=== PATIENT | male | born 1995 | race Caucasian/White ===

== ENCOUNTER 2020-08-23 12:25 | Emergency (ER) | payer MEDICAID, SELFPAY ==
[2020-08-23 13:01] VITALS: BP 138/80; BP 142/70; PULSE 79; PULSE 85; RESP 18; TEMP 36.7; O2SAT 100; O2SAT 99; BMI 22.8
--- NOTE | 2020-08-23 13:06 | PC.NURSE ---
Pt cooperative wtih changeover. Pacing in room, declined food, bible has been checked by security and is allowed to remain with patient.
--- NOTE | 2020-08-23 13:38 | ED_ITS ---
HPI - Psych General Chief Complaint: Psychiatric Symptoms Stated Complaint: crisis Time Seen by Provider: 08/23/20 13:38 Source: patient and EMS Mode of arrival: EMS Limitations: altered mental status History of Present Illness HPI Narrative: 25 y/o male with unknown medical or psychiatric history presents to the ER via EMS with strange behaviors noted by his coworkers. He was found by EMS with a Bible shouting about how the son of God has arrives and that he a vessel of God. He lives at home with his grandmother who is currently in [place]. He denies any history of psychiatric disorders or being on any medications. He denies current drug use and reported to staff I've been clean. He would not elaborate or cooperative with interview questions, stating he was busy with the Bible and was worried about all the sinners. He refused to answer further questions once asked about medications and pharmacy he goes to. MD complaint: altered mental status and hallucinations Onset (ago): unknown Duration: constant Relieving factors: none Exacerbating factors: none Associated psychiatric symptoms: racing thoughts, auditory hallucinations, visual hallucinations and delusions Associated symptoms: denies other symptoms Treatments prior to arrival: none Related Data Allergies Allergy/AdvReac Type Severity Reaction Status Date / Time Penicillins [PENICILLINS] Allergy Mild RASH Verified 08/23/20 13:01 penicillin V Allergy Unknown Rash Verified 08/23/20 13:01 Review of Systems Review of Systems: Yes Unobtainable due to mental status PMFSH Past Medical History Attestation statement: The following information was validated with the patient. Medical History (Updated 08/23/20 @ 20:04 by ABISAI Patel) Patient denies medical problems Social History Social History Alcohol intake: former Smoked in Last 30 Days: No Use of substances other than those prescribed or required for medical reasons: Yes Advance Directives: No Advance Directives Information Provided: Yes Physical Exam Vital Signs: Vital Signs: Last Vital Signs Temp 98.0 F 08/23/20 13:01 Pulse 79 08/23/20 13:01 Resp 18 08/23/20 13:01 BP 142/70 H 08/23/20 13:01 Pulse Ox 100 08/23/20 13:01 Body Mass Index 22.8 Appearance: Alert. Oriented X2. Yelling out Bible phrases Eyes: Pupils equal, round and reactive to light. ENT: Pharynx normal. Neck: Normal inspection. Neck supple. CVS: Normal heart rate and rhythm. Pulses normal. Respiratory: No respiratory distress. Breath sounds normal. Abdomen: Soft and nontender. +BS x4 Skin: Skin warm and dry. Normal skin color. Normal skin turgor. No rashes. Extremities: No lower extremity edema. Neuro: Oriented X 3. Ambulating in the room holding a Bible, rambling about sins, makes brief eye contact, racing thoughts, auditory hallucinations, paranoia, no SI Course Course Course Narrative: 25 y/o male presenting with new onset of psychotic behavior with delusions, paranoia and auditory hallucinations. Denies drug use or being on any psychiatric medications. Will try to obtain further history from family and coworkers. Basic labs and utox ordered. Zydis ordered. Reevaluation(s) Reevaluation #1: Utox negative. Labs showing mild hypercalcemia and elevated LFTs (tbili 2.7, d bili 0.7, and alp 129). No RUQ or abdominal pain. Will plan to trend in the morning. If continues to be elevated will consider RUQ U/S for further evaluation. Reevaluation #2: Seen by CARE team - section 12 completed. Patient is a section 12 inpatient bed search. Physician observation started at 8pm. Patient placed in physician observation because patient is awaiting inpatient psych admission. At the time observation was started patient's vital signs were stable. Patient is alert and oriented. Neuro exam is non-focal. CV: RRR and lungs are clear. Will continue to monitor. [facility] - Psych Lab Data Result diagrams: 08/23/20 19:05 08/23/20 19:05 Labs: Lab Results 08/23/20 08/23/20 08/23/20 Range/Units 18:48 18:48 19:05 WBC 8.5 (4.8-10.8) X10*3/uL RBC 5.18 (4.60-5.80) X10*6/uL Hgb 15.4 (14.0-18.0) g/dl Hct 44.4 (42-52) % MCV 85.7 (80-98) fL MCH 29.7 (27.0-33.0) pg MCHC 34.7 (31.0-36.0) g/dl RDW 12.1 (11.0-16.0) % Plt Count 369 (160-400) X10*3/uL MPV 9.7 (9.4-12.4) fL Immature Gran % (Auto) 0.1 (0.0-0.4) % Neut % (Auto) 60.2 (45-73) % Lymph % (Auto) 30.6 (20-40) % Gaines % (Auto) 8.5 (2-11) % Eos % (Auto) 0.2 (0-4) % Baso % (Auto) 0.4 (0-2) % Lymph # (Auto) 2.6 (1.2-4.9) X10*3/uL Gaines # (Auto) 0.7 (0.1-1.2) X10*3/uL Eos # (Auto) 0.0 (0.0-0.4) X10*3/uL Baso # (Auto) 0.0 (0.0-0.2) X10*3/uL Abs Immat Gran (auto) 0.01 (0.00-0.03) X10*3/uL Absolute Neuts (auto) 5.1 (2.0-8.3) X10*3/uL Absolute Nucleated RBC 0.000 (0.0-0.012) X10*3/uL Nucleated RBC % (auto) 0.0 (0.0-0.2) /100WBC Sodium (135-145) mmol/L Potassium (3.3-5.1) mmol/L Chloride (96-108) mmol/L Carbon Dioxide (22-29) mmol/L Anion Gap (12-20) BUN (9-16) mg/dL Creatinine (0.5-1.4) mg/dL Estim Creat Clear Calc Estimated GFR Random Glucose (60-115) mg/dL Calcium (8.4-10.2) mg/dL Total Bilirubin (0.0-1.0) mg/dL Direct Bilirubin (0.0-0.5) mg/dL AST (5-37) U/L ALT (0-40) U/L Alkaline Phosphatase (39-117) U/L Total Protein (6.5-8.0) g/dL Albumin (3.5-5.0) g/dL Urine Color DARK YELLOW Urine Appearance CLEAR Urine pH 6.0 (5.0-8.0) Ur Specific [place] 1.025 (1.005-1.025) Urine Protein 1+ H (NEG-TRACE) MG/DL Urine Glucose (UA) NEG (NEG) MG/DL Urine Ketones 40 (NEG) MG/DL Urine Blood NEG (NEG) Urine Nitrite NEG (NEG) Ur Leukocyte Esterase NEG (NEG) Urine RBC 0-2 (0) /HPF Urine WBC 0-2 (0-4) /HPF Ur Squamous Epith Cells NONE /LPF Urine Bacteria TRACE /LPF Urine Mucus 2+ /LPF Urine Opiates Screen Not Detected (Not Detect) Ur Barbiturates Screen Not Detected (Not Detect) Ur Phencyclidine Scrn Not Detected (Not Detect) Ur Amphetamines Screen Not Detected (Not Detect) U Benzodiazepines Scrn Not Detected (Not Detect) Urine Cocaine Screen Not Detected (Not Detect) U Marijuana (THC) Screen Not Detected (Not Detect) Ethyl Alcohol mg/dL 08/23/20 08/23/20 Range/Units 19:05 19:05 WBC (4.8-10.8) X10*3/uL RBC (4.60-5.80) X10*6/uL Hgb (14.0-18.0) g/dl Hct (42-52) % MCV (80-98) fL MCH (27.0-33.0) pg MCHC (31.0-36.0) g/dl RDW (11.0-16.0) % Plt Count (160-400) X10*3/uL MPV (9.4-12.4) fL Immature Gran % (Auto) (0.0-0.4) % Neut % (Auto) (45-73) % Lymph % (Auto) (20-40) % Gaines % (Auto) (2-11) % Eos % (Auto) (0-4) % Baso % (Auto) (0-2) % Lymph # (Auto) (1.2-4.9) X10*3/uL Gaines # (Auto) (0.1-1.2) X10*3/uL Eos # (Auto) (0.0-0.4) X10*3/uL Baso # (Auto) (0.0-0.2) X10*3/uL Abs Immat Gran (auto) (0.00-0.03) X10*3/uL Absolute Neuts (auto) (2.0-8.3) X10*3/uL Absolute Nucleated RBC (0.0-0.012) X10*3/uL Nucleated RBC % (auto) (0.0-0.2) /100WBC Sodium 142 (135-145) mmol/L Potassium 3.6 (3.3-5.1) mmol/L Chloride 104 (96-108) mmol/L Carbon Dioxide 24 (22-29) mmol/L Anion Gap 18 (12-20) BUN 12 (9-16) mg/dL Creatinine 1.19 (0.5-1.4) mg/dL Estim Creat Clear Calc 92.1 Estimated GFR > 60 Random Glucose 100 (60-115) mg/dL Calcium 10.8 H (8.4-10.2) mg/dL Total Bilirubin 2.7 H (0.0-1.0) mg/dL Direct Bilirubin 0.7 H (0.0-0.5) mg/dL AST 24 (5-37) U/L ALT 26 (0-40) U/L Alkaline Phosphatase 129 H (39-117) U/L Total Protein 8.7 H (6.5-8.0) g/dL Albumin 5.3 H (3.5-5.0) g/dL Urine Color Urine Appearance Urine pH (5.0-8.0) Ur Specific [place] (1.005-1.025) Urine Protein (NEG-TRACE) MG/DL Urine Glucose (UA) (NEG) MG/DL Urine Ketones (NEG) MG/DL Urine Blood (NEG) Urine Nitrite (NEG) Ur Leukocyte Esterase (NEG) Urine RBC (0) /HPF Urine WBC (0-4) /HPF Ur Squamous Epith Cells /LPF Urine Bacteria /LPF Urine Mucus /LPF Urine Opiates Screen (Not Detect) Ur Barbiturates Screen (Not Detect) Ur Phencyclidine Scrn (Not Detect) Ur Amphetamines Screen (Not Detect) U Benzodiazepines Scrn (Not Detect) Urine Cocaine Screen (Not Detect) U Marijuana (THC) Screen (Not Detect) Ethyl Alcohol < 10 mg/dL Discharge Plan Discharge Clinical Impression: Acute psychosis
--- NOTE | 2020-08-23 14:33 | PC.NURSE ---
patient has continued to chant with bible open on desk and nearly continuously pacing in his room, patient has prayed with hands held open to the denilson. presented to patient that med is available for anxiety?fearful thoughts. patient had poor eye contact and continued to sing while this automobile service writer spoke
--- NOTE | 2020-08-23 18:35 | MHC.CARE ---
[facility] came [place] [facility] [place] after realizing that CARE team took over the case. N reports that pt reported that god sent him to change the world and went to work today. At work pt reports that he had to tell his co-workers all about this revelation. He tells N that he lives with his grandmother and was raised by her. He states that we can can call his mother whom he has been speaking with more frequently. The mother's name is Jolie Cortez [phone] and she is SSO. [facility] reports that pt's muslim preoccupation appears new. Pt is very calm and cooperative. They report their concern is that he would be going home alone, due to grandmother being in [place] but otherwise feels that his judgment, and insight are fair adding that he is able to communicate what had happened today.
[2020-08-23 19:00] LABS: Glucose Urine UA NEG (NEG); Leukocyte Esterase Urine NEG (NEG); Nitrite Urine NEG (NEG); Specific Gravity - Urine 1.025 (1.005-1.025); Urine Blood NEG (NEG); Urine Ketones 40 MG/DL (NEG); Urine Protein 1+ MG/DL (NEG-TRACE)
[2020-08-23 19:12] LABS: Appearance Urine CLEAR; Color Urine DARK YELLOW
[2020-08-23 19:14] LABS: MANUAL DIFF FLAG NO
[2020-08-23 19:15] LABS: Basophils Percent Auto 0.4 % (0-2); Eosinophils Percent Auto 0.2 % (0-4); Hematocrit 44.4 % (42-52); Hemoglobin 15.4 g/dl (14.0-18.0); Imm Gran Abs Auto 0.01 X10*3/uL (0.00-0.03); Imm Gran Pct Auto 0.1 % (0.0-0.4); Lymphocytes Absolute Auto 2.6 X10*3/uL (1.2-4.9); Lymphocytes Percent Auto 30.6 % (20-40); Mean Corpuscular HGB Conc 34.7 g/dl (31.0-36.0); Mean Corpuscular Hemoglobin 29.7 pg (27.0-33.0); Mean Corpuscular Volume 85.7 fL (80-98); Mean Platelet Volume 9.7 fL (9.4-12.4); Monocytes Absolute Auto 0.7 X10*3/uL (0.1-1.2); Monocytes Percent Auto 8.5 % (2-11); Neutrophils Absolute Auto 5.1 X10*3/uL (2.0-8.3); Neutrophils Percent Auto 60.2 % (45-73); Platelet Count 369 X10*3/uL (160-400); Red Blood Count 5.18 X10*6/uL (4.60-5.80); Red Cell Distribution Width 12.1 % (11.0-16.0); White Blood Count 8.5 X10*3/uL (4.8-10.8)
[2020-08-23 19:16] LABS: Bacteria Urine TRACE /LPF; Mucus Urine 2+ /LPF; RBC Urine 0-2 /HPF (0); WBC Urine 0-2 /HPF (0-4)
[2020-08-23 19:30] LABS: Amphetamine Screen Urine Not Detected (Not Detect); Barbiturates, Urine Not Detected (Not Detect); Benzodiazepines Screen Urine Not Detected (Not Detect); Cannabinoid Screen Urine Not Detected (Not Detect); Cocaine Screen Urine Not Detected (Not Detect); Opiate Screen Urine Not Detected (Not Detect); Phencyclidine Screen Urine Not Detected (Not Detect)
[2020-08-23 19:38] LABS: Ethanol < 10 mg/dL
[2020-08-23 19:46] LABS: Alanine Aminotransferase 26 U/L (0-40); Albumin Level 5.3 g/dL (3.5-5.0); Alkaline Phosphatase 129 U/L (39-117); Anion Gap 18 (12-20); Aspartate Amino Transferase 24 U/L (5-37); Bilirubin Direct 0.7 mg/dL (0.0-0.5); Bilirubin Total 2.7 mg/dL (0.0-1.0); Blood Urea Nitrogen 12 mg/dL (9-16); Calcium 10.8 mg/dL (8.4-10.2); Carbon Dioxide 24 mmol/L (22-29); Chloride 104 mmol/L (96-108); Creatinine Clr Calc Pharmacy 92.1; Estimated Glomerular Filt Rate > 60; Glucose Random 100 mg/dL (60-115); Potassium 3.6 mmol/L (3.3-5.1); Sodium 142 mmol/L (135-145); Total Protein 8.7 g/dL (6.5-8.0)
[2020-08-23 20:15] VITALS: BP 124/76; PULSE 77; TEMP 36.3; O2SAT 99
--- NOTE | 2020-08-23 21:08 | PC.NURSE ---
Patient refused olanzapine x 3, currently lying in bed resting, VSS, will continue to monitor.
--- NOTE | 2020-08-24 06:19 | PC.NURSE ---
Patient slept through the night, no psychotic behavior overnight, compliant with Covid swab, VSS, no distress observed/reported, patient's disposition section 12 inpatient bed search, will continue to monitor.
[2020-08-24 06:20] VITALS: BP 117/59; PULSE 67; RESP 16; TEMP 36.4; O2SAT 100
[2020-08-24 06:45] LABS: COVID-19 Test Negative (Negative)
--- NOTE | 2020-08-24 07:41 | PC.NURSE ---
pt had a one time order for Zyprexa for agitation. Overnight RN was unable to administer medication and charted against it, pt was willing to take med this morning and med was administered.
[2020-08-24] MEDS: OLANZapine ODT 10 MG TAB.RAPDIS 5 MG TRANSLINGU ×2 (08:29→20:11)
[2020-08-24 08:47] LABS: Alanine Aminotransferase 27 U/L (0-40); Albumin Level 4.9 g/dL (3.5-5.0); Alkaline Phosphatase 120 U/L (39-117); Aspartate Amino Transferase 25 U/L (5-37); Bilirubin Direct 0.8 mg/dL (0.0-0.5); Bilirubin Total 3.1 mg/dL (0.0-1.0); Total Protein 8.1 g/dL (6.5-8.0)
--- NOTE | 2020-08-24 13:24 | MHC.CARE ---
Pt gave t/w verbal permission to provide Pts mother with his car and house keys. CARE Team provided Pts mother with keys.
--- NOTE | 2020-08-24 13:33 | MHC.CARE ---
CARE Team spoke with Pts mother at [facility]. Pts mother reported Pt carries a diagnosis of Austim. She reported this a new presentation for Pt and Pt isn't out of it but is saying god sent him here for a spiritual mission. She reports she is comfortable taking him home in this state however Pt is declining to want to leave the hospital and god wants him here . Pt is aware the plan of care is for Pt to be psychiatrically hospitalized and Pt is agreeable. Pts mother would like to be notified if Pt is to be discharged. Pt agreeable to this.
[2020-08-24 19:58] VITALS: BP 100/70; PULSE 80; RESP 18; TEMP 36.6; O2SAT 99
--- NOTE | 2020-08-24 20:17 | MHC.CARE ---
Pt approached this assembly instructions writer and stated that he's ready to go home now. This assembly instructions writer reviewed pt's chart and spoke with ED provider re: pt's initial presentation, collateral with pt's mother, and pt being considered as safe for discharge due to their being no imminent safety concerns noted or documented in medical record. ED provider is in agreement with plan for pt to discharge home with his mother. This assembly instructions writer spoke with pt's mother, Jolie, who reported that she is more than happy to come to the hospital to pick the pt up. Inpatient psychiatric bedsearch disconinuted, pt will discharge home this evening.
--- NOTE | 2020-08-24 20:23 | PC.NURSE ---
Patient calm and cooperative, mood pleasant, compliant with olanzapine PRN order, alert and oriented x 4, coherent thought process, will continue to monitor.
== END 2020-08-24 21:14 | disposition home or self-care (01) ==
PROVIDERS: Physician Assistant; Student in an Organized Health Care Education/Training Program; Emergency Provider Emergency Medicine Emergency Medical Services
DX: F23 Brief psychotic disorder (principal); E83.52 Hypercalcemia; R79.89 Other specified abnormal findings of blood chemistry; Z20.822 Contact with and (suspected) exposure to COVID-19
CPT/HCPCS: 36415; 80048; 80076; 80307; 81001; 81003; 82077; 85025; 87635; 99284; 99285

== ENCOUNTER 2020-10-28 15:14 | Emergency (ER) | payer MEDICAID, SELFPAY ==
[2020-10-28 15:32] VITALS: BP 119/72; PULSE 86; RESP 16; TEMP 37.2; O2SAT 97; BMI 26.6
[2020-10-28] MEDS: Acetaminophen 325 MG TABLET 650 MG PO (15:37)
[2020-10-28 17:33] VITALS: BP 125/72; PULSE 72; RESP 16; TEMP 36.7; O2SAT 97
--- NOTE | 2020-10-28 17:41 | ED.BACK ---
HPI - Back Pain/Injury General Chief Complaint: Back Pain/Injury Stated Complaint: back pain Time Seen by Provider: 10/28/20 17:41 Source: patient Mode of arrival: ambulatory Limitations: no limitations History of Present Illness HPI Narrative: 25-year-old male presents with right-sided back pain that occurred after he lifted a toddler just prior to arrival. Patient is tender from his right thoracic into his right lumbar area. Patient has no leg weakness, no saddle paresthesias, no incontinence of bowel or bladder, no fevers. MD elicited complaint: back pain Pertinent past history: recent trauma Onset (ago): hour(s) (1) Timing: constant Severity: moderate Pain scale (0-10): 7 Quality: stabbing and aching Location: right lower back Exacerbating factors: movement Relieving factors: none Context: while lifting Associated symptoms: denies other symptoms Work related injury: No Related Data Previous Rx's Medication Instructions Recorded ketorolac 10 mg tablet 10 mg PO Q6H PRN 5 Days #20 tab 10/28/20 methocarbamol 750 mg tablet 750 mg PO Q8H 3 Days #9 tab 10/28/20 Allergies Allergy/AdvReac Type Severity Reaction Status Date / Time Penicillins [PENICILLINS] Allergy Mild RASH Verified 08/23/20 13:01 penicillin V Allergy Unknown Rash Verified 08/23/20 13:01 Review of Systems Review of Systems: Constitutional : No Weight loss, No Fever, No Chills, No Night Sweats,No Fatigue, No Malaise ENT/Mouth : No Hearing loss, No Ear Pain, No Nasal Congestion, NoSinus Pain, No Hoarseness, No sore throat, No Rhinorrhea, NoSwallowing Difficulty Eyes: No Eye Pain, No Swelling, No Redness, No Foreign Body, NoDischarge, No Vision Changes Cardiovascular : No Chest Pain, No SOB, No Dyspnea on Exertion, NoOrthopnea, No Edema, No Palpitations Respiratory : No Cough, No Sputum, No Wheezing, No Smoke Exposure, No Dyspnea Gastrointestinal : No Nausea, No Vomiting, No Diarrhea, NoConstipation, No abdominal Pain, No Hematochezia, No Melena Genitourinary : no irregular bleeding, No Dysuria, No UrinaryFrequency, No Hematuria, No Urinary Incontinence, No Urgency, No FlankPain, No Urinary Flow Changes, No Hesitancy Musculoskeletal : back pain Skin : No Skin Lesions, No rash Neuro : No Weakness, No Numbness, No Paresthesias, No Loss ofConsciousness, No Dizziness, No Headache PMFSH Past Medical History Medical History Patient denies medical problems Social History Social History Alcohol intake: former Advance Directives: No Advance Directives Information Provided: No Physical Exam Vital Signs: Vital Signs: Last Vital Signs Temp 98.0 F 10/28/20 17:33 Pulse 72 10/28/20 17:33 Resp 16 10/28/20 17:33 BP 125/72 10/28/20 17:33 Pulse Ox 97 10/28/20 17:33 Body Mass Index 26.6 Const: General: cooperative, no acute distress, well developed, alert and awake Nutritional Appearance: well nourished Orientation/consciousness: patient oriented x3 Limitations: no limitations Eyes: Pupils: Equal, round and reactive pupils present Neck: Neck: Yes full ROM, Yes no lymphadenopathy and Yes supple Resp: Effort & Inspection: normal respiratory effort and able to speak in complete sentences Auscultation: clear to auscultation bilaterally, no crackles, no rales, no rhonchi and no wheezes Cardio: Rate: regular rate Rhythm: regular rhythm Heart sounds: S1 normal heart sound present and S2 normal heart sound present : General: Yes no CVA tenderness Back/Spine/Pelvis: Back: no CVA tenderness Cervical Spine: normal cervical lordosis, cervical ROM normal, No cervical spasm, No Cervical spine tenderness and No step off deformity Thoracic/Lumbar Spine: pain with thoraco-lumbar ROM, paraspinal muscle tenderness on the right in the lower thoracic and in the upper lumbar, No thoracic spinal tenderness and No lumbar spinal tenderness Pelvis: no pain with anterior-posterior compression Skin: General skin exam: no rashes or lesions noted Neuro: General: patient oriented x3, tone normal and moves all extremities Cranial nerves: Yes Equal, round and reactive pupils present Extrem: General: Yes normal to inspection and Yes full ROM Psych: Appearance: grossly normal Affect: normal affect Attitude: cooperative Thought process: Normal thought process present Course Course Course Narrative: 25-year-old male presents with acute right lower back pain after picking up a toddler just prior to arrival. Patient has no red flag symptoms, is not tender on his vertebrae, has palpable right paraspinous low thoracic and lumbar pain. Gave ketorolac here, prescribed ketorolac number box and. Gave return precautions. Discharge Plan Discharge Clinical Impression: Pain in right paraspinal region Patient Disposition: Home, Self-Care Instructions: Low Back Strain (ED) Additional Instructions: Please fill your prescriptions and take them tonight. Please take the muscle relaxant as prescribed for 3 days. Please take the ketorolac 6 hours after you got the shot here in the emergency room. Do not take any ibuprofen containing products when you are taking ketorolac. No Motrin, no Excedrin, no Aleve, no ibuprofen. A warm moist towel may help on your lower back. As soon as you feel better, please start moving around on stretching her back as much as he can. Please call your primary care provider for follow-up appointment. Prescriptions: New ketorolac 10 mg tablet 10 mg PO Q6H PRN (Reason: pain) 5 Days Qty: 20 RF: 0 methocarbamol 750 mg tablet 750 mg PO Q8H 3 Days Qty: 9 RF: 0 Interventions: ED Discharge Assessment Last Done: 10/28/20 18:28 Discharge Date/Time: 10/28/20 18:28
[2020-10-28] MEDS: Ketorolac Tromethamine 15 MG/ML VIAL 30 MG IM (18:24)
== END 2020-10-28 18:28 | disposition home or self-care (01) ==
PROVIDERS: Emergency Provider Internal Medicine
DX: M54.5 Low back pain (principal)
CPT/HCPCS: 96372; 99284; J1885